=== PATIENT | female | born 2000 ===

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

== ENCOUNTER 2022-04-10 09:22 | Emergency (ER) | payer OTHER, SELFPAY ==
[2022-04-10 09:42] VITALS: BP 117/65; PULSE 103; RESP 18; TEMP 37; O2SAT 98; BMI 33.7
--- NOTE | 2022-04-10 09:58 | ED_ITS ---
HPI - Female Genitourinary General Chief complaint: Urogenital-Female Stated complaint: vaginal discomfort Time Seen by Provider: 04/10/22 09:46 Source: patient Mode of arrival: ambulatory Limitations: no limitations History of Present Illness HPI Narrative: 21 yo female previously healthy here with reports of seeking treatment for gonorrhea and chlamydia. Patient tells me she was seen at [facility] for routine STD testing. This was 2 weeks ago. She found out a few days later that she was positive for gonorrhea and chlamydia. At that time she was having no symptoms. It was recommended that she get treated but patient tells me that she got busy with life and did not get treated. She tells me that she followed up with [facility] today but was told come to the emergency department as she has a penicillin allergy and they were unsure with what antibiotic to treat her with. Patient does report some vaginal swelling, irritation and burning. She denies any vaginal discharge, urinary symptoms, pelvic pain, back pain, fevers, vomiting. Patient is sexually active with 1 male partner. She does not use any contraception. Related Data Home Medications Medication Instructions Recorded Confirmed loratadine 10 mg tablet (Allergy 10 mg PO DAILY 03/28/21 03/28/21 Relief (loratadine)) Previous Rx's Medication Instructions Recorded doxycycline monohydrate 100 mg 100 mg PO BID #20 tab 04/10/22 tablet Allergies Allergy/AdvReac Type Severity Reaction Status Date / Time Penicillin Allergy Intermediate Rash Uncoded 04/10/22 09:42 Review of Systems Review of Systems: Yes all other systems are reviewed and are negative Constitutional: Constitutional: Reports no additional constitutional complaints, Denies body ache(s), Denies chills, Denies fever(s), Denies headache(s) and Denies weakness Eyes: Eyes: Reports no additional eye complaints and Denies change in vision ENT: Reports system reviewed and no additional complaints, except as documented, Denies dizziness, Denies headache(s), Denies nasal congestion, Denies nasal discharge and Denies neck pain Cardiovascular: Cardiovascular: Reports no additional cardiovascular complaints, Denies chest pain, Denies leg edema and Denies dyspnea Respiratory: Respiratory: Reports no additional respiratory complaints, Denies cough and Denies dyspnea Gastrointestinal: Gastrointestinal: Reports no additional gastrointestinal complaints, Denies abdominal pain, Denies diarrhea, Denies nausea and Denies vomiting Genitourinary: Genitourinary: Reports no additional female genitourinary complaints, Denies hematuria, Denies genital lesions, Denies dysuria, Denies pelvic pain, Denies flank pain, Denies urinary incontinence, Denies urinary hesitancy, Denies urinary urgency, Denies vaginal discharge, Denies vaginal dryness, Denies vaginal odor and Reports vaginal pruritus Musculoskeletal: Musculoskeletal: Reports no additional musculoskeletal complaints, Denies back pain, Denies arthralgias, Denies joint swelling, Denies neck pain, Denies numbness and Denies tingling Integumentary/Breasts: Skin/Breast: Reports system reviewed and no additional complaints, except as docu and Denies rash Neurologic: Reports system reviewed and no additional complaints, except as documented, Denies Abnormal speech present, Denies dizziness, Denies headache(s), Denies numbness, Denies tingling and Denies weakness PMFSH Past Medical History Attestation statement: The following information was validated with the patient. Source: old records reviewed and nursing notes reviewed Medical History Fracture of right ankle Seasonal allergies Social History Social History Alcohol intake: current Alcohol intake frequency: a few times a month Substance Use Type: Marijuana Advance Directives: No Advance Directives Information Provided: No Gender identity: Female Physical Exam Vital Signs: Vital Signs: Last Vital Signs Temp 98.6 F 04/10/22 09:42 Pulse 103 H 04/10/22 09:42 Resp 18 04/10/22 09:42 BP 117/65 04/10/22 09:42 Pulse Ox 98 04/10/22 09:42 BMI result Body Mass Index 33.7 Const: General: cooperative, healthy appearing, comfortable and no acute distress Orientation/consciousness: patient oriented x3 Limitations: no limitations HEENT: Head: Yes normal to inspection Ears: hearing grossly normal bilaterally General nose exam: Normal external nose present Face and sinus: Yes normal facial exam Mouth: Normal oral and palatal mucosa present Throat: Yes posterior oropharynx normal and Yes tonsils normal Eyes: General: appearance normal, both eyes and all related structures Pupils: Equal, round and reactive pupils present Neck: Neck: Yes normal visual inspection Chest: Chest palpation & inspection: normal inspection of the chest Resp: Effort & Inspection: normal respiratory effort Auscultation: clear to auscultation bilaterally Cardio: Rate: regular rate Rhythm: regular rhythm Peripheral pulses: Peripheral pulses 2+ throughout GI: Inspection: Yes normal to inspection Palpation (GI): Soft to palpation and nontender Auscultation: normal bowel sounds : Other: Patient declined pelvic External vaginal appearance is normal. No rash. There is some small yellow discharge noted Back/Spine/Pelvis: Thoracic/Lumbar Spine: thoracic and lumbar spine normal to inspection Skin: General skin exam: no rashes or lesions noted Neuro: General: patient oriented x3, no focal motor deficits and normal sensa tion to monofilament Cranial nerves: Yes Equal, round and reactive pupils present Cognition (Neuro): normal cognition Speech: No Abnormal speech present Gait exam (Neuro): Normal gait present Motor exam (neuro): 5/5 motor strength present throughout Extrem: General: Yes normal to inspection Course Course Course Narrative: 21 yo female here with +outpatient testing for gonorrhea/chlamydia at [facility] 2 weeks ago not treated d/t delay in care from patient and clinic concern for PCN allergy. C/o vaginal itching/swelling and irritation. No testing results available here. Will check CT NG, UA, ur preg. Will check pelvic exam Allergy to penicillin from patient was a rash as a child. D/w with attending Dr Rand. Will give ceftriaxone 500mg. Monitor for brief time. Reevaluation(s) Reevaluation #1: Patient monitored in the emergency department for 1 hour post receiving ceftriaxone 500 mg IM. No rash or complaints. Will discharge home with course of doxycycline. Reviewed worrisome signs and symptoms of when to return to the emergency department. Comfortable discharge home. Time: 12:00 MDM - Female Genitourinary MDM Narrative Medical decision making narrative: Abdomen nontender, soft. No reports of pelvic pain. PID less likely Medical Records Attestation: I reviewed the patient's medical records. Lab Data Attestation: I reviewed the patient's lab results. Labs: Lab Results 04/10/22 04/10/22 Range/Units 10:09 10:10 Urine Color YELLOW Urine Appearance CLEAR Urine pH 6.0 (5.0-8.0) Ur Specific [place] 1.025 (1.005-1.025) Urine Protein NEG (NEG-TRACE) MG/DL Urine Glucose (UA) NEG (NEG) MG/DL Urine Ketones NEG (NEG) MG/DL Urine Blood 1+ H (NEG) Urine Nitrite NEG (NEG) Ur Leukocyte Esterase 1+ H (NEG) Urine RBC 0 (0) /HPF Urine WBC 15-29 H (0-4) /HPF Ur Squamous Epith Cells 1+ /LPF Urine Bacteria NONE /LPF Urine Mucus 1+ /LPF Urine Test NEGATIVE (NEGATIVE) Discharge Plan Discharge Clinical Impression: Concern about STD in female without diagnosis Patient Disposition: Home, Self-Care Additional Instructions: You were tested for STDs and common vaginal infections found in women We are treating you prophylactically for gonorrhea and chlamydia Take all of the antibiotic Test results will take 1-2 days. We will call you with positive. If you are positive you will need to be retested after you are done completing her course of antibiotics at [facility]. Do not have unprotected sex during the course of your antibiotics. Your partner needs to be tested and treated Prescriptions: New doxycycline monohydrate 100 mg tablet 100 mg PO BID Qty: 20 0RF No Action loratadine [Allergy Relief (loratadine)] 10 mg tablet 10 mg PO DAILY 0RF Referrals: Jacqueline Adame MD [Primary Care Provider] - 1 week
[2022-04-10 10:18] LABS: Appearance Urine CLEAR; Color Urine YELLOW; Glucose Urine UA NEG (NEG); Leukocyte Esterase Urine 1+ (NEG); Nitrite Urine NEG (NEG); Specific Gravity - Urine 1.025 (1.005-1.025); UACC Culture Trigger YES; Urine Blood 1+ (NEG); Urine Ketones NEG (NEG); Urine Protein NEG (NEG-TRACE)
[2022-04-10 10:20] LABS: UPreg QC Valid YES; Urine Pregnancy NEGATIVE (NEGATIVE)
[2022-04-10 10:30] LABS: RBC Urine 0 /HPF (0)
[2022-04-10 10:31] LABS: Mucus Urine 1+ /LPF; Squamous Epithelial Cell Urine 1+ /LPF
[2022-04-10] MEDS: cefTRIAXone sodium 500 MG, Lidocaine HCl 1 % MPF 1 ML IM (11:02)
[2022-04-10 13:52] LABS: CT PCR DETECTED (Not Detect.); NG PCR DETECTED (Not Detect.)
[2022-04-11 09:21] LABS: BV Int Neg Control Negative (Negative); BV Int Pos Control Positive (Positive)
== END 2022-04-10 12:12 | disposition home or self-care (01) ==
PROVIDERS: Nurse Practitioner Family; Emergency Provider Emergency Medicine; PCP Pediatrics
DX: A54.9 Gonococcal infection, unspecified (principal); A74.9 Chlamydial infection, unspecified; N76.0 Acute vaginitis; A59.00 Urogenital trichomoniasis, unspecified; B95.1 Streptococcus, group B, as the cause of diseases classified elsewhere
CPT/HCPCS: 81001; 81025; 87086; 87147; 87480; 87491; 87510; 87591; 87660; 96372; 99283; 99284; J0696

== ENCOUNTER 2023-05-17 23:49 | Emergency (ER) | payer OTHER, SELFPAY ==
[2023-05-17 23:59] VITALS: BP 118/76; PULSE 76; RESP 16; TEMP 36.1; O2SAT 98; BMI 34.5
[2023-05-18 00:36] VITALS: BP 128/75; PULSE 87; RESP 16; TEMP 37; O2SAT 100
--- NOTE | 2023-05-18 01:18 | ED.GENADULT ---
[facility] - General Adult General Chief complaint: General Medical Stated complaint: Sore throat Time Seen by Provider: 05/18/23 00:18 Source: patient Mode of arrival: ambulatory History of Present Illness HPI narrative: 23-year-old female who presents with sore throat and enlarged lymph nodes that are discomfort but denies any fever chills but reports headache and started yesterday. Related Data Home Medications Medication Instructions Recorded Confirmed loratadine 10 mg tablet (Allergy 10 mg PO DAILY 03/28/21 03/28/21 Relief (loratadine)) Previous Rx's Medication Instructions Recorded doxycycline monohydrate 100 mg 100 mg PO BID #20 tabs 04/10/22 tablet doxycycline monohydrate 100 mg 100 mg PO BID 10 days #20 tabs 04/12/22 tablet metronidazole 500 mg tablet 500 mg PO Q12H 10 days #20 tabs 04/12/22 Allergies Allergy/AdvReac Type Severity Reaction Status Date / Time Penicillin Allergy Intermediate Rash Uncoded 04/10/22 09:42 Review of Systems Review of Systems: Pertinent positives and negatives as stated in [facility] Past Medical History Source: nursing notes reviewed Medical History Fracture of right ankle Seasonal allergies Social History Social History Alcohol intake: never Smoked in Last 30 Days: No Use of substances other than those prescribed or required for medical reasons: No Substance Use Type: Marijuana Any prior treatment program specific to substance use: No Advance Directives: No Advance Directives Information Provided: No Patient : No Gender identity: Female Physical Exam ED Vital Signs: Vital Signs - 24 hr 05/17/23 23:59 05/18/23 00:36 Temperature 97 F 98.6 F Pulse Rate 76 87 Respiratory Rate 16 16 Blood Pressure 118/76 128/75 Pulse Oximetry 98 100 Oxygen Delivery Method Room Air Room Air BMI result Body Mass Index 34.5 VITAL SIGNS: Reviewed. GENERAL: Well developed, well nourished, in no acute distress. HEAD: Normocephalic/atraumatic EYES: PERRLA, EOMI EARS: Ext canals without abnormality, TMs non-bulging and non-erythematous NOSE: Nares patent bilateral OROPHARYNX: no oral lesions noted, posterior pharynx erythematous and no noted tonsillar enlargement/erythema/exudates, no dental abscesses noted, no trismus NECK: Supple, + adenopathy LUNGS: Normal breath sounds. No adventitious sounds or accessory muscle use. SpO2<100> CARDIOVASCULAR: Regular rate and rhythm without noted murmurs ABDOMEN: Soft, non-tender, non-distended with bowel sounds. MUSCULOSKELETAL: No tenderness, deformities, or effusions noted on gross inspection. EXTREMITIES: No cyanosis, clubbing or edema. SKIN: Inspection of the skin reveals no rashes NEUROLOGIC: Alert and oriented x 4. Strength and sensation to light touch were grossly intact x 4. Medical Decision Making Medical Decision Making MDM Narrative: 23-year-old female with history and clinical presentation, DDX: AOM, strep pharyngitis, viral pharyngitis I reviewed all investigations, my interpretation is strep results of that they are negative, and suspect that this is viral in nature, patient was provided with combination analgesics and then discharged home in stable condition. Differential Diagnosis Please see the discussion above Lab Data Please see the discussion above Labs: Lab Results 05/18/23 Range/Units 00:21 S. pyogenes GrpA RISA Negative (Negative) Discharge Plan Discharge Clinical Impression: Pharyngitis Instructions: Pharyngitis (ED) Additional Instructions: 1. Tylenol 1000 mg, orally, every 6 hours as needed for pain control. Do not exceed 4000 mg within 24 hours. 2. Ibuprofen 400 mg, orally with milk or food, every 6 hours as needed for pain control. For improved symptom relief you can take this with the Tylenol. 3. Also recommend saline gargles (warm tap water mixed with table salt), gargle for 5 minutes, 3 to 4 times a day. Return to the ER for any worsening of symptoms. Prescriptions: No Action doxycycline monohydrate 100 mg tablet 100 mg PO BID Qty: 20 0RF doxycycline monohydrate 100 mg tablet 100 mg PO BID 10 Days Qty: 20 0RF metronidazole 500 mg tablet 500 mg PO Q12H 10 Days Qty: 20 0RF loratadine [Allergy Relief (loratadine)] 10 mg tablet 10 mg PO DAILY Referrals: Jacqueline Adame MD [Primary Care Provider] -
== END 2023-05-18 01:25 | disposition home or self-care (01) ==
PROVIDERS: Emergency Provider Student in an Organized Health Care Education/Training Program; PCP Pediatrics
DX: J02.9 Acute pharyngitis, unspecified (principal)
CPT/HCPCS: 87651; 99283; 99284

== ENCOUNTER 2024-11-15 18:14 | Emergency (ER) | payer SELFPAY ==
[2024-11-15 18:35] VITALS: BP 142/60; PULSE 91; RESP 16; TEMP 37.1; O2SAT 98; BMI 34.6
--- NOTE | 2024-11-15 18:48 | ED_ITS ---
HPI - General Adult General Chief complaint: Wound/Laceration Stated complaint: lt hand laceration Time Seen by Provider: 11/15/24 22:57 Related Data Home Medications ?Medication ?Instructions ?Recorded ?Confirmed loratadine 10 mg tablet (Allergy 10 mg PO DAILY 03/28/21 03/28/21 Relief (loratadine)) Previous Rx's ?Medication ?Instructions ?Recorded doxycycline monohydrate 100 mg 100 mg PO BID #20 tabs 04/10/22 tablet doxycycline monohydrate 100 mg 100 mg PO BID 10 days #20 tabs 04/12/22 tablet metronidazole 500 mg tablet 500 mg PO Q12H 10 days #20 tabs 04/12/22 Allergies Allergy/AdvReac Type Severity Reaction Status Date / Time Penicillin Allergy Intermediate Rash Uncoded 11/15/24 18:42 PMFSH Past Medical History Medical History Fracture of right ankle Seasonal allergies Social History Social History Alcohol intake: never Substance Use Type: Marijuana Advance Directives: No Advance Directives Information Provided: No Do you have a plan to hurt others: No Plan Gender identity: Female Physical Exam ED Vital Signs: Vital Signs - 24 hr 11/15/24 18:35 Temperature 98.7 F Pulse Rate 91 Respiratory Rate 16 Blood Pressure 142/60 H Pulse Oximetry 98 Oxygen Delivery Method Room Air BMI result Body Mass Index 34.6 Course Course Course Narrative: RME: 24-year-old female presents to ED for laceration to web of thumb finger of left hand with a knife which is controlled. Patient is able to feel thumb but has some pain. Negative for any signs of tendon nerve injury. Unsure when last Tdap. Patient to be seen EM Discharge Plan Discharge Clinical Impression: Laceration Patient Disposition: Home, Self-Care Instructions: Finger Laceration (ED) Additional Instructions: Please keep the area clean Prescriptions: No Action doxycycline monohydrate 100 mg tablet 100 mg PO BID Qty: 20 0RF doxycycline monohydrate 100 mg tablet 100 mg PO BID 10 Days Qty: 20 0RF metronidazole 500 mg tablet 500 mg PO Q12H 10 Days Qty: 20 0RF loratadine [Allergy Relief (loratadine)] 10 mg tablet 10 mg PO DAILY Referrals: Physician,None [Primary Care Provider] - (Follow-up with your primary doctor in 3 days) Print Language: Italian
--- NOTE | 2024-11-15 23:32 | ED.WOUNDLAC ---
HPI - Wound/Laceration General Chief Complaint: Wound/Laceration Stated Complaint: lt hand laceration Time Seen by Provider: 11/15/24 22:57 History of Present Illness HPI narrative: Patient is a 24-year-old female accidentally cut the left hand digit 1 inter webspace. Patient cut it using a knife. No suicidal homicidal ideation. No fever no chills no systemic complaints. Able to move her thumb without any difficulty. Related Data Home Medications ?Medication ?Instructions ?Recorded ?Confirmed loratadine 10 mg tablet (Allergy 10 mg PO DAILY 03/28/21 03/28/21 Relief (loratadine)) Previous Rx's ?Medication ?Instructions ?Recorded doxycycline monohydrate 100 mg 100 mg PO BID #20 tabs 04/10/22 tablet doxycycline monohydrate 100 mg 100 mg PO BID 10 days #20 tabs 04/12/22 tablet metronidazole 500 mg tablet 500 mg PO Q12H 10 days #20 tabs 04/12/22 Allergies Allergy/AdvReac Type Severity Reaction Status Date / Time Penicillin Allergy Intermediate Rash Uncoded 11/15/24 18:42 Review of Systems Review of Systems: No fever no chills no systemic complaints PMFSH Past Medical History Attestation statement: The following information was validated with the patient. Medical History Fracture of right ankle Seasonal allergies Social History Social History Alcohol intake: never Substance Use Type: Marijuana Advance Directives: No Advance Directives Information Provided: No Do you have a plan to hurt others: No Plan Gender identity: Female Physical Exam Vital Signs: Vital Signs: Last Vital Signs Temp 98.7 F 11/15/24 18:35 Pulse 91 11/15/24 18:35 Resp 16 11/15/24 18:35 BP 142/60 H 11/15/24 18:35 Pulse Ox 98 11/15/24 18:35 O2 Del Method Room Air 11/15/24 18:35 BMI result Body Mass Index 34.6 Appearance: Alert. Oriented X3. No acute distress. Eyes: Pupils equal, round and reactive to light. ENT: Pharynx normal. Neck: Normal inspection. Neck supple. No lymph nodes noted. No crepitus CVS: Normal heart rate and rhythm. Pulses normal. Normal S1 and S2 Respiratory: No respiratory distress. Breath sounds normal. No Wheezing. No rales Abdomen: Soft and nontender. No rigidity. No distention. good BS x4 Skin: Skin warm and dry. Normal skin color. Normal skin turgor. Extremities: No lower extremity edema. Neurovascular intact to all extremities. Extremely small laceration over the 1st webspace on the left side. Approximately 0.25 cm in size. The wound is well apposed. There is good opposition of the thumb. There is good adduction abduction of the thumb. There is good capillary refill. Sensation over the hypothenar area over the thumb intact. Capillary refill less than 2 seconds. Neuro: Oriented X 3. No motor deficit. No sensory deficit. Moving all extermities. No slurred speech Medical Decision Making Medical Decision Making MDM Narrative: Well-appearing no acute distress very minimal laceration less than 1 cm in size well apposed. The wound was cleaned. Subsequently tetanus was updated. Patient to be discharged home neurovascularly intact Differential Diagnosis Differential Diagnoses: The differential diagnosis associated with the presentation includes Laceration, tendon injury, vascular injury Admission/Observation Consideration of admission/observation: Escalation of care including admission/observation considered Social Determinants Patient?s care significantly limited by Social Determinants of Health including: Problems related to primary support group Discharge Plan Discharge Clinical Impression: Laceration Patient Disposition: Home, Self-Care Instructions: Finger Laceration (ED) Additional Instructions: Please keep the area clean Prescriptions: No Action doxycycline monohydrate 100 mg tablet 100 mg PO BID Qty: 20 0RF doxycycline monohydrate 100 mg tablet 100 mg PO BID 10 Days Qty: 20 0RF metronidazole 500 mg tablet 500 mg PO Q12H 10 Days Qty: 20 0RF loratadine [Allergy Relief (loratadine)] 10 mg tablet 10 mg PO DAILY Referrals: Physician,None [Primary Care Provider] - (Follow-up with your primary doctor in 3 days) Print Language: Trinidadian
[2024-11-15] MEDS: Diphth,Pertus(ACell),Tet Adult 0.5 ML SYRINGE IM (23:55)
[2024-11-16 00:01] VITALS: BP 131/71; PULSE 87; RESP 16; TEMP 36.6; O2SAT 100
[2024-11-16 00:07] VITALS: BP 131/71; PULSE 87; RESP 16; TEMP 36.6; O2SAT 100
== END 2024-11-16 00:09 | disposition home or self-care (01) ==
PROVIDERS: Emergency Provider Emergency Medicine Emergency Medical Services
DX: S61.412A Laceration without foreign body of left hand, initial encounter (principal); M79.642 Pain in left hand; W26.0XXA Contact with knife, initial encounter; Y93.89 Activity, other specified; Y92.89 Other specified places as the place of occurrence of the external cause; Y99.8 Other external cause status; Z23 Encounter for immunization
CPT/HCPCS: 90471; 90715; 99283; 99284